=== PATIENT | female | born 1990 | race African-American/Black ===

== ENCOUNTER 2023-10-10 16:52 | Outpatient (CLI) | payer OTHER, SELFPAY ==
[2023-10-10 17:32] LABS: Hematocrit 34.3 % (37.0-47.0); Hemoglobin 11.6 g/dL (12.0-15.0); Mean Corpuscular HGB Conc 33.8 g/dl (32-36); Mean Corpuscular Hemoglobin 29.3 pg (26-34); Mean Corpuscular Volume 86.6 fl (80-100); Mean Platelet Volume 10.6 fl (7.4-10.4); Platelet Count Result 378 k/mm3 (150-375); Red Blood Count 3.96 M/mm3 (4.2-5.4)
[2023-10-10 18:23] LABS: HIV 1/2 Ab P24 Ag Result Negative (Negative)
[2023-10-10 19:47] LABS: Hepatitis B Surface Antigen Negative (Negative)
[2023-10-10 23:01] LABS: Hepatitis B Surface Antigen 0.15 S/C; Rubella IgG Antibody > 110.0 IU/ML
[2023-10-11 17:18] LABS: Rapid Plasma Reagin Non-Reactive (NonReactive)
[2023-10-18 10:17] LABS: CMV IgG Antibody <0.60
[2023-10-20 08:41] LABS: SMA 2.0 RISK VARIANT Not Detected
[2023-10-20 08:43] LABS: SMN2 Not Detected
== END 2023-10-10 16:53 | disposition home or self-care (01) ==
PROVIDERS: PCP Internal Medicine; Visit Provider Student in an Organized Health Care Education/Training Program
DX: N94.89 Other specified conditions associated with female genital organs and menstrual cycle (principal)
CPT/HCPCS: 36415; 81329; 84702; 85027; 85660; 86592; 86644; 86703; 86747; 86762; 86787; 86850; 86900; 86901; 87077; 87086; 87088; 87186; 87340; G0432

== ENCOUNTER 2023-10-17 17:01 | Outpatient (CLI) | payer OTHER, SELFPAY ==
[2023-10-23 18:56] LABS: Hematocrit 34.4 % (35.0-45.0); Hemoglobin 11.5 g/dL (11.7-15.5); MCH 30.3 pg (27.0-33.0); MCV 90.5 fL (80.0-100.0); RDW 12.2 % (11.0-15.0)
== END 2023-10-17 17:02 | disposition home or self-care (01) ==
LOC: ANHLAB 17:03
PROVIDERS: PCP Family Medicine; Visit Provider Student in an Organized Health Care Education/Training Program
DX: Z34.90 Encounter for supervision of normal pregnancy, unspecified, unspecified trimester (principal)
CPT/HCPCS: 36415; 83021

== ENCOUNTER 2024-02-20 09:01 | Outpatient (CLI) | payer OTHER, SELFPAY ==
[2024-02-20 10:34] LABS: Hematocrit 31.8 % (37.0-47.0); Hemoglobin 10.2 g/dL (12.0-15.0); Mean Corpuscular HGB Conc 32.1 g/dl (32-36); Mean Corpuscular Hemoglobin 29.2 pg (26-34); Mean Corpuscular Volume 91.1 fl (80-100); Mean Platelet Volume 10.9 fl (7.4-10.4); Platelet Count Result 283 k/mm3 (150-375); Red Blood Count 3.49 M/mm3 (4.2-5.4); Red Cell Distribution Width 13.2 % (11.5-14.5); White Blood Count 11.4 K/mm3 (4.5-10.0)
[2024-02-20 10:49] LABS: Glucose 1 Hour PP 50gm Dose 114 mg/dL
[2024-02-20 11:29] LABS: HIV 1/2 Ab P24 Ag Result Negative (Negative)
== END 2024-02-20 09:02 | disposition home or self-care (01) ==
PROVIDERS: PCP Family Medicine; Visit Provider Student in an Organized Health Care Education/Training Program
DX: Z34.90 Encounter for supervision of normal pregnancy, unspecified, unspecified trimester (principal); Z3A.00 Weeks of gestation of pregnancy not specified
CPT/HCPCS: 36415; 82947; 85027; 86703; G0432

== ENCOUNTER 2024-05-11 10:34 | Outpatient (RCR) | payer OTHER, SELFPAY ==
[2024-05-08 13:14] VITALS: BP 108/66; PULSE 90
--- NOTE | ~2024-05-11 | US_ITS ---
EXAMINATION: US OB BPP wo non-stress DATE: 05/08/2024 12:33 INDICATION: Assess biophysical profile at the full-term of TECHNIQUE: Real-time pelvic ultrasound was performed. The interpreting radiologist was not present fo r the study. COMPARISON: None. FINDINGS: There is a single living fetus in vertex presentation. The placenta is anterior. heart rate is 151 beats per minute (bpm). Normal deepest vertical amniotic fluid pocket measuring 2.8 cm. Biophysical profile performed by the technologist: breathing (30 sec sustained breathing in 30 minutes): 2 out of 2 movement (3 gross body movements in 30 minutes): 2 out of 2 tone (one episode of qofcaon-pdwuvqhhr-rcfppiv limb movement): 2 out of 2 Amniotic fluid pocket (2 cm): 2 out of 2 Total score: 8 out of 8 IMPRESSION: 1. Single living fetus in vertex presentation with heart rate of 151 bpm. 2. Biophysical profile 8 out of 8. Reviewed, dictated and finalized at location B.
[2024-05-11 11:06] VITALS: BP 124/74; PULSE 96
[2024-05-14 11:21] VITALS: BP 118/77; PULSE 78
== END 2024-06-26 08:17 | disposition home or self-care (01) ==
LOC: ANHOBOP 10:34
PROVIDERS: PCP Family Medicine; Visit Provider Obstetrics & Gynecology
DX: O48.0 Post-term pregnancy (principal); Z3A.40 40 weeks gestation of pregnancy
CPT/HCPCS: 59025; 76819

== ENCOUNTER 2024-05-14 19:44 | Inpatient (IN) | payer OTHER, SELFPAY ==
[2024-05-14 20:30] VITALS: BMI 29.3
--- NOTE | 2024-05-14 20:30 | LDADM ---
This patient, Yazmin Leyva, was admitted to Labor/Delivery/Recovery 105 on 05/14/24 at 19:44. Plans for labor, pain management and were discussed with patient. Patient/family oriented to hospital policies and general routines including ID bracelet, bed and alarms, visiting hours, pain management, procedures, bathroom and other care routines, personal items, smoking policy, room service/diet and guest tray routines, security routines, and visiting hours. Patient/Family are encouraged to report perceived risks to care and to ask questions if they do not understand what they are told or what they should do. See OBIX for further documentation.
[2024-05-14 20:53] LABS: Basophils Percent Auto 0.3 % (0.2-1.2); Eosinophils Absolute Auto 0.1 K/mm3 (0-0.3); Eosinophils Percent Auto 1.3 % (0-4.4); Hematocrit 38.4 % (37.0-47.0); Hemoglobin 13.1 g/dL (12.0-15.0); Immature Granulocyte Absolute 0.11 K/mm3 (0.00-0.031); Lymphocytes Absolute Auto 2.35 K/mm3 (0.9-3.2); Lymphocytes Percent Auto 22.3 % (18.3-44.2); Mean Corpuscular HGB Conc 34.1 g/dl (32-36); Mean Corpuscular Hemoglobin 29.4 pg (26-34); Mean Corpuscular Volume 86.1 fl (80-100); Monocytes Absolute Auto 0.6 K/mm3 (0.1-0.6); Monocytes Percent Auto 5.4 % (2.6-8.5); Neutrophils Absolute Auto 7.3 K/mm3 (1.3-6.7); Neutrophils Percent Auto 69.7 % (45.5-73.1); Platelet Count Result 273 k/mm3 (150-375); Red Blood Count 4.46 M/mm3 (4.2-5.4); Red Cell Distribution Width 13.9 % (11.5-14.5); White Blood Count 10.5 K/mm3 (4.5-10.0)
[2024-05-14 21:03] VITALS: BP 125/71; PULSE 87
[2024-05-14 21:30] VITALS: BP 140/70; PULSE 88
[2024-05-14] MEDS: LACTATED RINGERS 1,000 ML 125 ML IV CONT (21:34)
[2024-05-14] MEDS: OXYTOCIN 30 UNITS/NS 500 ML 30 UNITS/500 ML BAG 6 UNITS IV CONT (21:36)
[2024-05-14 21:42] LABS: HIV 1/2 Ab P24 Ag Result Negative (Negative)
[2024-05-14 22:00] VITALS: BP 136/79; PULSE 92
[2024-05-14 22:30] VITALS: BP 134/62; PULSE 96
[2024-05-14 23:00] VITALS: BP 125/67; PULSE 93
[2024-05-14 23:31] VITALS: BP 131/93; PULSE 92
[2024-05-15] VITALS (272 sets, daily range): BP systolic 85–146; BP diastolic 41–102; PULSE 25–188; RESP 13–21; TEMP 36.4–38.4; O2SAT 79–100
[2024-05-15] MEDS: fentaNYL CITRATE INJ (*CRX) 100 MCG/2 ML VIAL 50 MCG IV PUSH (00:23)
[2024-05-15] MEDS: fentaNYL CITRATE INJ (*CRX) 100 MCG/2 ML VIAL IV PUSH (01:40)
--- NOTE | 2024-05-15 02:23 | WPDANESEPP ---
Anes - Eval Pre Procedure Procedure: Labor Epidural Date/Time: 05/15/24 02:23 Surgeon: Aliyah Preop Diagnosis: Labor pain Pre Op Diagnosis: Leaking Patient Data Age: 34 Gender: F Height: 1.55 m Weight: 70.5 kg Last Vital Signs Temp 36.8 C 05/15/24 02:00 Pulse 86 05/15/24 02:00 BP 126/82 05/15/24 02:00 O2 Del Method Room Air 05/14/24 20:30 Allergies Allergy/AdvReac Type Severity Reaction Status Date / Time No Known Allergies Allergy Verified 05/13/24 10:17 Home Medications Medication Instructions Recorded Confirmed Type vits no.126-ferrous fum 1 tablet PO DAILY #90 tabs 09/25/23 05/13/24 Rx 28 mg iron-folic acid 800 mcg tablet (Classic ) doxylamine succinate 25 mg tablet 25 mg PO QHS PRN Nausea 11/14/23 05/13/24 History (Unisom (doxylamine)) ferrous sulfate 325 mg (65 mg 325 mg PO DAILY 02/26/24 05/13/24 History iron) tablet Laboratory Tests 05/14/24 20:43 WBC 10.5 H K/mm3 (4.5-10.0) RBC 4.46 M/mm3 (4.2-5.4) Hgb 13.1 g/dL (12.0-15.0) Hct 38.4 % (37.0-47.0) MCV 86.1 fl (80-100) MCH 29.4 pg (26-34) MCHC 34.1 g/dl (32-36) RDW 13.9 % (11.5-14.5) Plt Count 273 k/mm3 (150-375) MPV 11.0 H fl (7.4-10.4) Immature Gran % (Auto) 1.0 H % (0-0.5) Neut % (Auto) 69.7 % (45.5-73.1) Lymph % (Auto) 22.3 % (18.3-44.2) [place] % (Auto) 5.4 % (2.6-8.5) Eos % (Auto) 1.3 % (0-4.4) Baso % (Auto) 0.3 % (0.2-1.2) Lymph # (Auto) 2.35 K/mm3 (0.9-3.2) [place] # (Auto) 0.6 K/mm3 (0.1-0.6) Eos # (Auto) 0.1 K/mm3 (0-0.3) Baso # (Auto) 0.0 K/mm3 (0.0-0.1) Abs Immat Gran (auto) 0.11 H K/mm3 (0.00-0.031) Absolute Neuts (auto) 7.3 H K/mm3 (1.3-6.7) Absolute Nucleated RBC 0.000 K/mm3 (0.0-0.012) Nucleated RBC % 0.0 % (0.0-0.2) RPR Pending HIV 1&2 Ab/P24 Ag 4thGn Negative (Negative) Blood Type A Positive Antibody Screen Negative : gestational age (BALWINDER 05/08/24, ) Patient hx anesthesia problems: none Family hx anesthesia problems: none Results Review: All pre-operative results and documents have been reviewed as part of the pre-operative evaluation. [facility] Past Medical History Medical History Suppression of menses Vaginal discharge Family History Family History Mother Family history of malignant neoplasm Family history of malignant neoplasm of ovary Leukemia Social History Social History Smoking status: Former smoker Tobacco type: cigarettes Second hand tobacco smoke exposure: No Smoking end date: 08/06/23 Alcohol intake: current Alcohol use details: socially Substance use: never Substance use type: does not use Do You Feel Safe in your Home?: Yes Lack of Transportation: No Lack of Food: Never True Current Housing: I Have Housing Concerned About Future Housing: No Difficulty Paying Gas/Electric Bills: No Difficulty Paying for Meds: No Currently Unemployed: No Education: High School Diploma/GED Difficulty w/ Childcare or Family Care: No Living arrangements: alone Occupation/Education: occupation 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
[2024-05-15] MEDS: LACTATED RINGERS 1,000 ML 125 ML IV CONT ×4 (02:30→15:03)
[2024-05-15] MEDS: ONDANSETRON INJ 4 MG/2 ML VIAL IV PUSH ×2 (07:54→15:06)
[2024-05-15] MEDS: AMPICILLIN 2 GM/NS 100 ML 2 GM/100 ML BAG IVPB (11:36)
[2024-05-15] MEDS: SODIUM CHLORIDE 0.9% IV 300 ML 600 ML I-UTERINE (12:28)
[2024-05-15] MEDS: ACETAMINOPHEN 500 MG TABLET 1000 MG PO (15:06)
[2024-05-15] MEDS: FAMOTIDINE 20 MG/2 ML VIAL IV PUSH (15:06)
--- NOTE | 2024-05-15 15:16 | PM.IMHP ---
H&P: HPI History of Present Illness Date/Time: 05/15/24 15:16 34-year-old 1 at 41 weeks presents with rupture membranes in early labor. Was started on Pitocin and progressed to 7-8 cm, where she did stay for a few hours before becoming complete. Did then push with no movement and decision was made to proceed with delivery. Chief Complaint: Review of Systems Review of Systems: All systems reviewed & are unremarkable except as noted in HPI and below PMFSH Past Medical History Medical History Suppression of menses Vaginal discharge Family History Family History Mother Family history of malignant neoplasm Family history of malignant neoplasm of ovary Leukemia Social History Social History Smoking status: Former smoker Tobacco type: cigarettes Second hand tobacco smoke exposure: No Smoking end date: 08/06/23 Alcohol intake: current Alcohol use details: socially Substance use: never Substance use type: does not use Do You Feel Safe in your Home?: Yes Lack of Transportation: No Lack of Food: Never True Current Housing: I Have Housing Concerned About Future Housing: No Difficulty Paying Gas/Electric Bills: No Difficulty Paying for Meds: No Currently Unemployed: No Education: High School Diploma/GED Difficulty w/ Childcare or Family Care: No Living arrangements: alone Occupation/Education: occupation 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 Gender identity (if verbalized by the patient): Female Sexual Orientation (if Verbalized by the Patient): Straight or Heterosexual Spiritual care concerns: No Meds Home Medications and Allergies Home Medications Medication Instructions Recorded Confirmed Type vits no.126-ferrous fum 1 tablet PO DAILY #90 tabs 09/25/23 05/13/24 Rx 28 mg iron-folic acid 800 mcg tablet (Classic ) doxylamine succinate 25 mg tablet 25 mg PO QHS PRN Nausea 11/14/23 05/13/24 History (Unisom (doxylamine)) ferrous sulfate 325 mg (65 mg 325 mg PO DAILY 02/26/24 05/13/24 History iron) tablet Allergies Allergy/AdvReac Type Severity Reaction Status Date / Time No Known Allergies Allergy Verified 05/13/24 10:17 Vital Signs Vital Signs - 24 hr 05/14/24 20:30 05/14/24 21:03 05/14/24 21:30 Temperature Pulse Rate 87 88 Respiratory Rate Blood Pressure 125/71 140/70 Pulse Oximetry Oxygen Delivery Room Air 05/14/24 22:00 05/14/24 22:30 05/14/24 23:00 Temperature Pulse Rate 92 96 93 Respiratory Rate Blood Pressure 136/79 134/62 125/67 Pulse Oximetry Oxygen Delivery 05/14/24 23:31 05/15/24 00:00 05/15/24 00:30 Temperature 98.7 F Pulse Rate 92 72 79 Respiratory Rate Blood Pressure 131/93 H 125/64 117/89 Pulse Oximetry Oxygen Delivery 05/15/24 01:00 05/15/24 01:30 05/15/24 02:00 Temperature 98.3 F Pulse Rate 83 118 H 86 Respiratory Rate Blood Pressure 106/56 L 121/93 H 126/82 Pulse Oximetry Oxygen Delivery 05/15/24 02:23 05/15/24 02:24 05/15/24 02:29 Temperature Pulse Rate Respiratory Rate Blood Pressure Pulse Oximetry 100 83 L 100 Oxygen Delivery 05/15/24 02:30 05/15/24 02:34 05/15/24 02:35 Temperature Pulse Rate 115 H 98 96 Respiratory Rate Blood Pressure 146/85 H 130/72 128/81 Pulse Oximetry 100 Oxygen Delivery 05/15/24 02:38 05/15/24 02:39 05/15/24 02:40 Temperature Pulse Rate 85 108 H Respiratory Rate Blood Pressure 131/79 116/60 Pulse Oximetry 100 Oxygen Delivery 05/15/24 02:42 05/15/24 02:44 05/15/24 02:45 Temperature Pulse Rate 117 H 108 H Respiratory Rate Blood Pressure 103/59 L 118/70 Pulse Oximetry 100 Oxygen Delivery 05/15/24 02:4
[2024-05-15] MEDS: ceFAZolin 2 GM/D5W 50 ML 2 GM/50 ML BAG IVPB (15:17)
--- NOTE | 2024-05-15 15:18 | WPDHPUPDATE1 ---
History and Physical Update Update Date/Time: 05/15/24 15:18 History and Physical has been reviewed, including an updated exam of the patient. There are NO changes in the patient's condition. Risks, benefits, and alternatives have been discussed and questions answered. Patient agrees to proceed with procedure.
--- NOTE | 2024-05-15 16:11 | W.PM.OBCSD ---
OB - Delivery Note Procedure Delivery date: 05/15/24 Pre-op diagnosis: Arrest of Decent Post-op Diagnosis: Same Induction method: None Delivery augmentation: Pitocin Delivery monitor: External FHT and External Uterine Prior to decision for section, [facility] labor guidelines were considered and discussed with the patient and staff. Decision made to proceed with the section.: Yes Procedure Performed: Primary Primary branch: low cervical, transverse Surgeon: José Ly MD Anesthesia type: Epidural Description of Procedure/Findings: Patient prepped and draped in usual manner for this procedure. Pfannenstiel incision was made and carried down to the fascia which was then extended bilaterally the length of the skin incision. Superiorly and inferiorly the rectus muscles were then dissected from the fascia and the peritoneum was entered without difficulty. Bladder flap was developed and uterus was scored low transverse manner. Vertex was delivered in occiput posterior position and nuchal cord was reduced. Rest of baby was delivered cord was clamped and cut and passed off the operative field. Placenta was then removed manually without difficulty and the uterus was exteriorized. Membranes and clots removed from the uterus the uterus was closed using 0 Monocryl in running interlocking manner with good approximation hemostasis noted. Uterus returned the abdomen, gutters were cleared 0 signs fluids and clots, and uterine incision again inspected and noted be hemostatic and intact. All subfascial tissue was noted hemostatic and the fascia was then approximated using 0 Vicryl from the left angle to the midline and then from the right angle to the midline in a running manner. Subcutaneous tissue was rendered hemostatic and approximated using 0 plain suture. [place] were then used to approximate the skin edges and the patient was sent to recovery room in stable condition. Specimen: Yes Estimated Blood Loss: 620 Drains: Yes ( Law) Packing: No Pathology: Yes Complications: No immediate complications Condition: Stable Disposition: PACU Baby Weeks of gestation at delivery: 41 Infant gender: Female Weight (pounds): 8 Weight (ounces): 3 presentation: vertex position: Right Occiput Posterior Placenta delivery description: Manual Removal Cord Vessel Description: 3 Vessels, Nuchal Cord and Reduced score one minute: 8 score five minutes: 9
--- NOTE | 2024-05-15 19:18 | PC.NURSE ---
Patient transferred to post room #291 via ( Stretcher ). Support person present. Oriented to unit, room, information board, rooming in, admission packet and security measures. Patient verbalizes understanding.
[2024-05-15] MEDS: OXYTOCIN 30 UNITS/NS 500 ML 30 UNITS/500 ML BAG 125 UNITS IV CONT (19:38)
[2024-05-15] MEDS: DOCUSATE SODIUM 100 MG CAPSULE PO (22:09)
[2024-05-15] MEDS: SIMETHICONE 80 MG TAB.CHEW PO (22:09)
[2024-05-15] MEDS: ACETAMINOPHEN 325 MG TABLET 650 MG PO (22:10)
[2024-05-15] MEDS: KETOROLAC 15 MG/ML VIAL (*BKC) IV PUSH (22:10)
[2024-05-15] MEDS: LIDOCAINE 5% PATCH 1 PATCH TRANSDERM (22:16)
[2024-05-15] MEDS: DEXTROSE 5%/0.45% SOD CHL 1,000 ML 125 ML IV CONT (23:52)
[2024-05-16] MEDS: KETOROLAC 15 MG/ML VIAL (*BKC) IV PUSH ×2 (04:42→10:39)
[2024-05-16] MEDS: ACETAMINOPHEN 325 MG TABLET 650 MG PO ×4 (04:42→23:30)
[2024-05-16 05:00] VITALS: BP 116/72; PULSE 85; RESP 18; TEMP 36.8; O2SAT 99
[2024-05-16 06:00] LABS: Basophils Absolute Auto 0.1 K/mm3 (0.0-0.1); Basophils Percent Auto 0.3 % (0.2-1.2); Eosinophils Absolute Auto 0.1 K/mm3 (0-0.3); Eosinophils Percent Auto 0.3 % (0-4.4); Hematocrit 32.6 % (37.0-47.0); Hemoglobin 11.2 g/dL (12.0-15.0); Immature Granulocyte Percent A 0.6 % (0-0.5); Lymphocytes Absolute Auto 2.59 K/mm3 (0.9-3.2); Lymphocytes Percent Auto 15.1 % (18.3-44.2); Mean Corpuscular HGB Conc 34.4 g/dl (32-36); Mean Corpuscular Hemoglobin 29.9 pg (26-34); Mean Corpuscular Volume 86.9 fl (80-100); Mean Platelet Volume 11.3 fl (7.4-10.4); Monocytes Absolute Auto 1.3 K/mm3 (0.1-0.6); Monocytes Percent Auto 7.5 % (2.6-8.5); Neutrophils Absolute Auto 13.1 K/mm3 (1.3-6.7); Neutrophils Percent Auto 76.2 % (45.5-73.1); Platelet Count Result 257 k/mm3 (150-375); Red Blood Count 3.75 M/mm3 (4.2-5.4); Red Cell Distribution Width 14.3 % (11.5-14.5); White Blood Count 17.2 K/mm3 (4.5-10.0)
--- NOTE | 2024-05-16 06:50 | PC.NURSE ---
Mother requests assistance due to concerns that she doesn't have enough milk for baby. Mother given education on milk supply, expectations the first few days , and what is typical for baby at this time. Breast pump provided due to mother's request. She believes that is 'getting too much air' at the breast and this is causing baby to spit up. Education provided on burping and expectations for baby, including normal behaviors. Mom does have her own hands free pump but requests a hospital pump to use for now. Instructions given on cleaning, care, usage, that there should be no pain, pumping schedule for milk production, collection, and storage of human milk. Patient was assessed for correct placement, flange size, to pump for comfort and nipple stretching/stimulation for adequate milk production every 3 hours (8 times in 24 hours) 1-2 times at night. Mother feels that she wants to have the option to supplement if desired at this time. Mother will be using WIC so Enfamil was provided and mother was educated on bottle feeding, amount per feeding, and use of pumped milk first.?Mother voiced understanding of the education shared along with mom/baby guide and the pump measurement. Reported to the Primary RN.
[2024-05-16 07:40] VITALS: BP 121/65; PULSE 100; RESP 16; TEMP 36.2; O2SAT 100
[2024-05-16] MEDS: SIMETHICONE 80 MG TAB.CHEW PO ×3 (08:49→16:13)
[2024-05-16] MEDS: MULTIVIT/MIN/PREN/FOL AC/IRON TABLET 1 TAB PO (08:50)
[2024-05-16] MEDS: DOCUSATE SODIUM 100 MG CAPSULE PO ×2 (08:50→16:13)
--- NOTE | 2024-05-16 09:46 | PM.OBPNVD ---
OB - PN: Subj Subjective Date/time seen: 05/16/24 09:46 S: Ambulating without difficulty. Diet well tolerated. Pain well controlled. O: VSS afebrile Abdomen positive bowel sounds soft, incision bandage with minimal drainage Labs noted A: Postop day 1, doing well P: Continue routine /postoperative care OB - PN: Obj Data Labs 05/16/24 05:26 Labs: Laboratory Results - last 24 hr 05/16/24 05:26 WBC 17.2 H RBC 3.75 L Hgb 11.2 L Hct 32.6 L MCV 86.9 MCH 29.9 MCHC 34.4 RDW 14.3 Plt Count 257 MPV 11.3 H Immature Gran % (Auto) 0.6 H Neut % (Auto) 76.2 H Lymph % (Auto) 15.1 L [place] % (Auto) 7.5 Eos % (Auto) 0.3 Baso % (Auto) 0.3 Lymph # (Auto) 2.59 [place] # (Auto) 1.3 H Eos # (Auto) 0.1 Baso # (Auto) 0.1 Abs Immat Gran (auto) 0.10 H Absolute Neuts (auto) 13.1 H Absolute Nucleated RBC 0.000 Nucleated RBC % 0.0 OB - PN A/P Time Spent With Patient Time: Total time spent is greater than 50% in coordination of care (as documented) at patient's floor/unit and/or counseling patient:
[2024-05-16 13:46] LABS: Rapid Plasma Reagin Non-Reactive (NonReactive)
--- NOTE | 2024-05-16 14:11 | WPDANLDNPN2 ---
Anes-Prog Note L&D-Neuraxial Date/Time: 05/16/24 14:11 Neuraxial medications: epidural PF morphine Opiod-related complaints: none Patient feedback: Patient satisfied with post-operative pain management.
--- NOTE | 2024-05-16 14:11 | WPDANLDPN2 ---
Anes-Prog Note L&D Date/Time: 05/16/24 14:11 Comfortable throughout: labor, delivery and section Neuraxial method: epidural Epidural/Spinal procedure site: clean & non-tender Neuro status: Neuro function grossly intact. Cardiovascular status: normal Respiratory status: normal Airway patency: baseline Mental status: baseline Post-Op hydration status: normal Vital Signs: Last Vital Signs Temp 36.2 C L 05/16/24 07:40 Pulse 100 05/16/24 07:40 Resp 16 05/16/24 07:40 BP 121/65 05/16/24 07:40 Pulse Ox 100 05/16/24 07:40 O2 Del Method Room Air 05/16/24 06:45 Pain score (VAS): 2 I/O: Intake & Output 05/15/24 05/16/24 05/16/24 23:59 07:59 15:59 Intake Total 1726 Output Total 1105 1775 Balance -1105 -49 Post-procedural complaints: none Patient feedback: Patient satisfied with anesthetic care.
[2024-05-16] MEDS: IBUPROFEN 600 MG TABLET PO ×2 (16:13→23:30)
[2024-05-16 20:10] VITALS: BP 122/85; PULSE 80; RESP 18; TEMP 36.9; O2SAT 100
[2024-05-17] MEDS: IBUPROFEN 600 MG TABLET PO ×2 (05:22→13:12)
[2024-05-17] MEDS: ACETAMINOPHEN 325 MG TABLET 650 MG PO ×2 (05:22→13:11)
[2024-05-17] MEDS: LIDOCAINE 5% PATCH 1 PATCH TRANSDERM (05:25)
--- NOTE | 2024-05-17 07:47 | PM.OBDSVD ---
DS: Admitting Diagnosis Discharge Date 05/18/2024 Admitting Diagnosis DS: Discharge Diagnosis Discharge Diagnosis (1) , delivered: Code(s): O80 - Encounter for full-term uncomplicated delivery Status: Acute OB - DS: Summary OB Procedures : None OB Procedures Intrapartum: OB Procedures: : None Peripartum Data Procedures: Procedures Operation Date: 05/15/24 15:15 Actual Procedure Side Surgeon p Section Bilateral José Ly MD Time Spent with Patient Time attestation: Total time spent providing and/or coordinating discharge services: DS: Data Data Completed and Pending Pending studies at discharge: Pending at discharge 05/15/24 16:39 Surgical [PTH] Routine Labs on day of discharge: Labs from last 24 hours 05/14/24 20:43 RPR Non-reactive Discharge Plan Discharge Discharging Clinician: José Ly Patient Disposition: Home, Self-Care Activity: no driving, follow weight bearing status and pelvic rest Diet: as tolerated Patient Instructions: Antibiotic Form Stand Alone Forms: General Discharge Information Follow-up/Referrals: José Ly MD [Physician] - Discharge Medications: New hydrocodone-acetaminophen 5-325 mg Tablet 1 tablet PO Q3H PRN (Reason: Breakthrough Pain Rated 4-6) Qty: 20 0RF ibuprofen 600 mg Tablet 600 mg PO Q6H Qty: 30 0RF Continued Unisom (doxylamine) 25 mg tablet 25 mg PO QHS PRN (Reason: Nausea) ferrous sulfate 325 mg (65 mg iron) tablet 325 mg PO DAILY Classic 28 mg iron- 800 mcg tablet 1 tablet PO DAILY Qty: 90 2RF Date of admission: 05/14/24 19:44 Primary Care Provider: AshleyMakenzie Admitting Provider: José Ly Attending physician on admission: José Ly Condition: Stable
--- NOTE | 2024-05-17 07:48 | PM.OBPNVD ---
OB - PN: Subj Subjective Date/time seen: 05/17/24 07:48 S: More discomfort today after significant ambulation yesterday, no other issues. O: VSS afebrile Abdomen: Positive bowel sounds soft incision clean dry and intact with namita in place A: Doing well PE: Discharge home tomorrow with follow-up in office next week for staple removal. OB - PN: Obj Data Labs 05/16/24 05:26 Labs: Laboratory Results - last 24 hr 05/14/24 20:43 RPR Non-reactive OB - PN A/P Time Spent With Patient Time: Total time spent is greater than 50% in coordination of care (as documented) at patient's floor/unit and/or counseling patient:
[2024-05-17 07:50] VITALS: BP 117/77; PULSE 73; RESP 16; TEMP 37.1; O2SAT 100
[2024-05-17] MEDS: SIMETHICONE 80 MG TAB.CHEW PO ×2 (09:58→13:12)
[2024-05-17] MEDS: MULTIVIT/MIN/PREN/FOL AC/IRON TABLET 1 TAB PO (09:58)
[2024-05-17] MEDS: DOCUSATE SODIUM 100 MG CAPSULE PO (09:58)
--- NOTE | 2024-05-17 10:55 | PC.NURSE ---
Patient requested a flange assessment because pumping is hurting. Patient was measured and found to be 19mm nipple size, which makes a 24mm flange appropriate for her. She has been using the 21mm flange with the suction turned up fairly high. Encouraged patient to turn down suction by one level until there is no longer pain. Patient thought that she needed a 17mm flange, education provided on the recommended sizing guide by Herlinda. Patient's left nipple is inverted and is more painful and excoriated than the right nipple, which is everted. Encouraged patient to call out when she pumps next so that we can visualize the flange fit and make sure she is comfortable. Mother verbalized her understanding and states that she will call out when she pumps again.
[2024-05-18 08:40] VITALS: BP 112/82; PULSE 82; RESP 18; TEMP 37; O2SAT 100
== END 2024-05-17 17:36 | disposition home or self-care (01) | DRG 540 ==
LOC: ANHLDR 20:04 → ANHOB2 05-15 19:46
PROVIDERS: Admitting Provider Obstetrics & Gynecology; PCP Family Medicine; Visit Provider Obstetrics & Gynecology
PROC: 10D00Z1 Extraction of Products of Conception, Low, Open Approach (ICD-10-PCS; CPT 59514; principal; 2024-05-15 15:15)
DX: O62.1 Secondary uterine inertia (principal); O75.2 Pyrexia during labor, not elsewhere classified; O48.0 Post-term pregnancy; Z3A.41 41 weeks gestation of pregnancy; O69.81X0 Labor and delivery complicated by cord around neck, without compression, not applicable or unspecified; O77.0 Labor and delivery complicated by meconium in amniotic fluid; Z37.0 Single live birth; Z87.891 Personal history of nicotine dependence
CPT/HCPCS: 36415; 59025; 85025; 86592; 86703; 86850; 86900; 86901; 88307; A9270; G0432; J0290; J0690; J1100; J1200; J1885; J2274; J2371; J2405; J2590; J2795; J3010; J7030; J7120

== ENCOUNTER 2025-02-20 16:24 | Emergency (ER) | payer OTHER, SELFPAY ==
--- NOTE | 2025-02-20 16:27 | ED.URI ---
HPI - URI/Sore Throat General Chief Complaint: Upper Respiratory Infection Stated Complaint: Sinus Time Seen by Provider: 02/20/25 16:45 Source: patient, RN notes reviewed and old records reviewed Mode of arrival: ambulatory Limitations: no limitations History of Present Illness HPI Narrative: 35-year-old female presents to the [facility] with 6 day history of headaches, sinus pressure, sinus pain, fatigue, decreased appetite. Patient reports fever of 104 last night. Did take Tylenol. Patient denies any neck pain. Patient denies any coughing, chest pain. Denies abdominal pain. Denies urinary symptoms. Onset (ago): day(s) (6) Treatments prior to arrival: acetaminophen Related Data Allergies Allergy/AdvReac Type Severity Reaction Status Date / Time No Known Allergies Allergy Verified 02/20/25 16:25 Review of Systems Review of Systems: All systems reviewed & are unremarkable except as noted in HPI and below Constitutional: Constitutional: Reports as per HPI, Reports body ache(s), Reports fatigue, Reports fever(s) and Reports headache(s) ENT: Reports as per HPI Cardiovascular: Cardiovascular: Reports no additional cardiovascular complaints, Denies chest pain and Denies dyspnea Respiratory: Respiratory: Reports no additional respiratory complaints, Denies chest congestion, Denies cough and Denies dyspnea Gastrointestinal: Gastrointestinal: Reports no additional gastrointestinal complaints Genitourinary: Genitourinary: Reports no additional female genitourinary complaints Musculoskeletal: Musculoskeletal: Reports no additional musculoskeletal complaints Integumentary/Breasts: Skin/Breast: Reports system reviewed and no additional complaints, except as docu PMFSH Past Medical History Medical History Suppression of menses Vaginal discharge Surgical History Surgical History History of delivery Family History Family History Mother Family history of malignant neoplasm Family history of malignant neoplasm of ovary Leukemia Social History Social History Smoking status: Former smoker Tobacco type: cigarettes Second hand tobacco smoke exposure: No Smoking end date: 08/06/23 Alcohol intake: current Alcohol use details: socially Substance use: never Substance use type: does not use Do You Feel Safe in your Home?: Yes Lack of Transportation: No Lack of Food: Never True Current Housing: I Have Housing Concerned About Future Housing: No Difficulty Paying Gas/Electric Bills: No Difficulty Paying for Meds: No Currently Unemployed: No Education: High School Diploma/GED Difficulty w/ Childcare or Family Care: No Living arrangements: alone Occupation/Education: occupation 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 There is no relevant family history pertinent to the patient complaint. Exam Const: General: cooperative, healthy appearing, no acute distress, well developed, alert, tired appearing, uncomfortable, well groomed and well nourished Nutritional Appearance: well nourished Orientation/consciousness: patient oriented x3 Limitations: no limitations HENMT: Head: normal to inspection Ears: hearing grossly normal bilaterally, external ears normal, TM's normal bilaterally, EAC's normal, mastoids normal and no periauricular adenopathy Face/Nose/Sinus: Normal external nose present, No nasal discharge present, face symmetric and sinus tenderness Face and sinus: normal facial exam, face symmetric, no abrasions, no crepitus, no ecchymosis, no erythema and sinus tenderness Mouth: Yes Normal oral and palatal mucosa present, Yes lip normal, Yes tongue normal and Yes moist mucous membranes Throat: posterior oropharynx normal, uvula midline and no uvular edema Eyes: General: appearance normal, both eyes and all related structures Alignment and Position: alignment normal Neck: Neck: normal visual inspection, full ROM, no lymphadenopathy and no meningeal signs Chest: Chest palpation & inspection: normal inspection of the chest Resp: Effort & Inspection: normal respiratory effort and able to speak in complete sentences Auscultation: clear to auscultation bilaterally, no crackles, no rales, no rhonchi and no wheezes Cardio: Rate: regular rate Back/Spine/Pelvis: Back: No back tenderness Skin: General skin exam: normal color and no rashes or lesions noted Neuro: General: patient oriented x3, gait normal, moves all extremities and no meningeal signs Cognition (Neuro): normal cognition Speech: normal speech Gait exam (Neuro): Normal gait present Extrem: General: normal to inspection, full ROM, capillary refill normal and normal gait Psych: Appearance: grossly normal and well kempt Mental Status: mental status grossly normal Speech and movement: Normal speech and movement present and Clear speech present Affect: normal affect Attitude: cooperative Course Course Level of Care: Express Care Visit Vital Signs Vital signs: Vital Signs Temperature 101.4 F H 02/20/25 16:42 Pulse Rate 115 H 02/20/25 16:42 Respiratory Rate 19 02/20/25 16:42 Blood Pressure 131/80 02/20/25 16:42 Pulse Oximetry 100 02/20/25 16:42 Oxygen Delivery Room Air 02/20/25 16:42 Temperature 101.7 F H 02/20/25 17:34 Pulse Rate 115 H 02/20/25 16:42 Respiratory Rate 19 02/20/25 16:42 Blood Pressure 131/80 02/20/25 16:42 Pulse Oximetry 100 02/20/25 16:42 Oxygen Delivery Room Air 02/20/25 16:42 Reviewed MDM - URI/Sore Throat MDM Narrative Medical decision making narrative: Patient sitting in exam room. Patient is febrile, mildly tachycardic at 115. Patient was 6 day history sinus pain or pressure. Also reports headache. Patient is denying any other symptoms. No meningeal signs. Patient's flu and COVID is negative Will cover with antibiotic for possible bacterial sinusitis. Discussed signs and symptoms to proceed to the emergency room for further evaluation, testing and treatment Discharge instructions reviewed with patient, as well as provided in writing per nursing staff. The instructions also include specific and strict return/GO TO THE ER as well as f/u information. All questions have been answered, and the patient deny any further questions with discharge and discharge plan. Some parts of this dictation were generated by voice recognition software and may contain typographical and/or grammatical inaccuracies. Differential Diagnosis Differential diagnosis: Likely upper respiratory infection, otitis media, sinusitis, viral infection, bronchitis, influenza and pharyngitis Lab Data Labs: Lab Results 02/20/25 Range/Units 16:50 POC Influenza A Ag Negative (Negative) POC Influenza B Ag Negative (Negative) POC SARS CoV-2 Ag Negative (Negative) Reviewed Critical Care Time Critical Care Time Critical Care Time: No Discharge Plan Discharge Clinical Impression: Sinusitis Qualifiers: Sinusitis location: pansinusitis Chronicity: acute Recurrence: not specified as recurrent Qualified Code(s): J01.40 - Acute pansinusitis, unspecified Patient Disposition: Home Condition: Stable Instructions: Antibiotic Form, Sinusitis (ED) Additional Instructions: Your rapid COVID test were negative Your rapid flu test was negative It is very important to treat your symptoms. Drink plenty of water, Gatorade, Pedialyte, ice pops or Jell-O. -Alternate Tylenol and Motrin per package directions for fever or pain. You can alternate every 4 hours -Antihistamine medication such as Zyrtec/Claritin/Asmita during the day can help improve symptoms. -doing daily nasal irrigations can help relieve pressure your sinuses. Things like a Neti pot -Use Flonase twice a day for 5 days then daily to help reduce the inflammation and dry up your sinuses. -You can also use Mucinex. Be sure to drink plenty of water with this medication at least 8 ounces with every dose and it is important to drink 8 to 10 glasses of water per day. Water is a natural decongestant -Eat and drink things that are easy to swallow, like tea or soup, or popsicles. -Oral rinses such as: Salt water gargles and/or may use topical anesthetic (eg. Chloraseptic spray) or lozenges to relieve dryness or throat pain). -Frequent hand washing or hand real estate closing coordinator is one of the best ways to prevent spread of infection. -Using a vaporizer or humidifier at night will also help thin secretions and help with coughing up phlegm. -Follow up with primary care provider in 7-10 days if condition is not improving - For new or worsening symptoms go directly to the nearest ER Patient Language: Greek Prescriptions: New amoxicillin-pot clavulanate 875-125 mg tablet 1 tablet PO Q12H Qty: 20 0RF No Action norethindrone (contraceptive) 0.35 mg tablet 0.35 mg PO DAILY Qty: 84 3RF Follow-up/Referrals: Kenneth,Makenzie Pelayo MD [Primary Care Provider] - 1 Week Stand Alone Forms: Work/School Release IP Time of Disposition: 17:36
[2025-02-20 16:42] VITALS: BP 131/80; PULSE 115; RESP 19; TEMP 38.6; O2SAT 100
[2025-02-20 17:06] VITALS: TEMP 39.1
[2025-02-20 17:10] VITALS: TEMP 38.8
[2025-02-20] MEDS: ACETAMINOPHEN 500 MG TABLET 1000 MG PO (17:10)
[2025-02-20 17:13] LABS: EDCOVIDSCREEN Negative (Negative); EDINFLUASCREEN Negative (Negative); EDINFLUBSCREEN Negative (Negative)
[2025-02-20 17:34] VITALS: TEMP 38.7
== END 2025-02-20 17:40 | disposition home or self-care (01) ==
PROVIDERS: Emergency Provider Nurse Practitioner; PCP Family Medicine
DX: J01.40 Acute pansinusitis, unspecified (principal); Z87.891 Personal history of nicotine dependence; Z20.822 Contact with and (suspected) exposure to COVID-19
CPT/HCPCS: 87426; 87804; 99213; A9270; G0463